=== PATIENT | male | born 1950 | race Caucasian/White ===

== ENCOUNTER 2024-06-15 07:46 | Day surgery (SDC) | payer MEDICARE, OTHER, SELFPAY ==
[2024-05-29 09:41] VITALS: BMI 22.9
[2024-06-15] VITALS (21 sets, daily range): BP systolic 98–179; BP diastolic 55–86
[2024-06-15 11:38] LABS: ACT-LR - POC 313 Seconds (116-155)
[2024-06-15 11:59] LABS: ACT-LR - POC 350 Seconds (116-155)
--- NOTE | 2024-06-15 12:13 | ITS.CL.ABL ---
Manager Contact - Ablation
Ablation
Procedure Report:
ELECTROPHYSIOLOGY ABLATION STUDY
�
DATE:: June 15, 2024�����������������������������REFERRING: Dr. Eugene Adamson
�
INDICATION: Paroxysmal supraventricular tachycardia in the form of atrial fibrillation.��Drug refractory atrial fibrillation on metoprolol therapy
�
HISTORY: See H and P.��As above
�
ANTIARRHYTHMIC DRUG: Metoprolol
�
PRE-PROCEDURE SERGIO: No atrial thrombus
�
PRESENTING RHYTHM: Sinus rhythm
�
'TIME-OUT':��called and confirmed.
�
SEDATION/ANESTHESIA:��provided via the anesthesia department using general anesthesia (LMA).
�
INTRAVENOUS/ARTERIAL ACCESS:
Right femoral venous - 8Fr
Left femoral venous - 8 Fr, 6 Fr
[id number] suture to each of the groins
Ultrasound guidance for bilateral femoral vein access was utilized by me to obtain access with demonstration of normal anatomy
CHADS-VASC Score:
�
HAS-Bled Score
�
PROCEDURE:
1.��A decapolar CS catheter was placed within the CS for mapping and pacing.��This was also used as the reference catheter for the 3-D map.
�
2. The intracardiac ultrasound catheter was positioned in the RA to identify the FO for targeting of transseptal puncture, assist��in identification of the pulmonary vein ostia, monitoring pre and post ablation pulmonary vein flow velocities,
monitoring for 'bubble' formation during RF application as a sign of thermal injury,��and to monitor for pericardial effusion during mapping and ablation procedure.���Left atrial size, LV ejection fraction, and pulmonary vein flows were monitored
pre and post ablation procedure. The other valves were inspected and found to be free of significant regurgitation or stenosis.
�
3.��Half of the calculated heparin bolus was administered prior to the first transeptal puncture.��Transseptal puncture was performed to diagnose RA and LA pressure so that safety of LA mapping and ablation could be further assessed, and to access
the left atrium and pulmonary veins for mapping and ablation.��This entailed advancing an 16 Wolof outer sheath with dilator and RF wire apparatus into the superior vena cava and withdrawing both (monitoring intracardiac ultrasound, fluoroscopy and
tip pressure) with the tip oriented toward the atrial septum.��The fossa ovalis was engaged (indicated by sudden displacement of the sheath tip as well as tenting of the fossa seen on intracardiac ultrasound).��Left atrial access required a pass
with the Brockenbrough needle extended.��Left atrial catheter position was confirmed by pressure monitoring (RA mean pressure 8 mm Hg and LA mean pressure 14 mm Hg), LA saturation ( 99 %),��as well as fluoroscopy.��The sheath was advanced over the
dilator and positioned in the left atrium.���The remainder of the calculated heparin bolus was administered and heparin was
infused to maintain ACT at 300 -350 seconds throughout the case.
�
4.��RA pacing was performed via the proximal decapolar poles and LA pacing was performed via the distal decapolar poles.
�
5. A quadrapolar catheter was first positioned at the His position for His Bundle recording which was tagged via the 3-D Navex sytem, and then passed to the RVA for RV pacing and recording.
�
6. The multipolar catheter and the PFA catheter were placed in each of the LIPV, LSPV, RSPV and the RIPV.��
�
7.��Next, a 3-D map was created using Navex.���A 3-D reconstructed CT image was compared to the 3-D Navex map to assist in anatomic interpretation, mapping and ablation.��The CT image and the NavX image were fused.
�
8. Total of 52 lesions were given with the femoral pulse catheter. Each vein was addressed with olive and basket pose in 2 separate confirmations with flower pose to the antrum and posterior wall of the left atrium and left atrial roof. Entrance
and exit block was confirmed in each of the 4 pulmonary veins and electrical silence and left atrial posterior wall. EP study post ablation demonstrated no other inducible nonpulmonary triggers for atrial fibrillation nor extrapulmonary vein
substrate for atrial fibrillation.
�
9. Normal sinus node and AV bennett function noted. Improvement in basic cycle length of the sinus node post ablation of the right pulmonary veins.
TOTAL FLOURO TIME: 15.7 minutes 123 mGy
�
TOTAL RF DURATION: 0 minutes
�
REVERSAL OF HEPARIN: [ ] mg of protamine, slow IV administration
�
COMPLICATIONS:
None
Intracardiac US shows no pericardial effusion post ablation.
�
SUMMARY:��
Complex left atrial mapping and ablation.
Isolation of all 4 pulmonary veins plus left atrial posterior wall as above with the Farapulse PFA catheter
�
RECOMMENDATIONS:
1. Out of bed 4 hours
2. Resume anticoagulation
3.��Consider same-day discharge
4.��3 months of oral anticoagulation before discontinuation if clinically silent from atrial fibrillation perspective
�
Copy to: Dr. Eugene Adamson
�
--- NOTE | 2024-06-15 16:12 | W.PN.UPDATE ---
Update Note
Progress Note Update
Pt seen post PFA. Bilat groin sites without ht/bleeding. OOB ambulating, urinating without difficulty. Post EKG NSR w/RBBB, PACs as before- no acute changes. Resume eliquis tonight at usual time, continue other meds as before. Followup at [facility] as
scheduled. Home today if groin sites/tele remain stable.
== END 2024-06-15 17:00 | disposition home or self-care (01) ==
LOC: CATH 07:46
PROVIDERS: ATTENDING PHYSICIAN Internal Medicine Cardiovascular Disease; FAMILY PHYSICIAN Family Medicine
DX: I48.0 Paroxysmal atrial fibrillation (principal); I47.19 Other supraventricular tachycardia; I45.10 Unspecified right bundle-branch block; I10 Essential (primary) hypertension; N40.0 Benign prostatic hyperplasia without lower urinary tract symptoms; Z79.01 Long term (current) use of anticoagulants
CPT/HCPCS: C1732; C1894; C1730; C1769; C1892; C1759; 85347; 93005; 93656; C1733; C1766

== ENCOUNTER 2025-02-08 07:34 | Emergency (ER) | payer MEDICARE, OTHER, SELFPAY ==
[2025-02-08 07:52] VITALS: BP 174/85
--- NOTE | 2025-02-08 08:34 | ED.GENMED ---
History of Present Illness
General
Chief Complaint: Skin Surface Trauma
Source: patient
Exam Limitations: none
Time Seen by Provider: 02/08/25 08:12
Nursing documentation reviewed up to this point in time: agreed with
History of Present Illness
History of Present Illness:
74 y/o M R hand dominant here with R thumb laceration through his R thumb nail plate and knicked the fat pad as well; he doesn't think this went through and through
on eliquis but held it last night and this morning
had ablation 4 mo ago and as far as he knows he is not in afib any longer and will likely d/c the eliquis soon anyway
tetanus around 5 years ago
this happened last night
still having some oozing
Past History
Past History
ED Past Medical History: Arrthythmia and HTN
ED Past Surgical History: Cardiac
Social History
Tobacco: Non-smoker
Alcohol: None
Review of Systems
Review of Systems
Allergies reviewed?: Yes
All Other Systems: Not applicable
Phy Exam
Physical Exam
Physical Exam:
GENERAL: Alert , in no apparent distress, comfortable at rest
HEAD: NCAT
CV: cap refill intact
NEUROLOGICAL: Alert and oriented, no focal neuro deficits, , 5/5 strength, sensation intact, ambulation slight limp right leg
SKIN: Warm and dry, pt has a puncture through the mid nail plate of the R thumb with some mild oozing
the distal fingertip on the palmar aspect has a few superficial lacerations 2 -3 mm
MUSCULOSKELETAL: full ROM of the thumb
tender fingertip
normal vascular exam
strength normal
PSYCH: Normal and appropriate interaction.
Course
Orders/Labs/Results
Orders:
Orders
02/08/25 08:30
Finger(s)/Thumb 2 View Rt [CR Finger(s)/thumb Min 2 Vw Rt] Urgent
Comment:
Reason For Exam: injury, laceration
Indicate Which Finger:: Thumb
02/08/25 08:33
Tetanus/Diphth/Acelpertussis [Adacel] 0.5 ml IM .ONCE ONE
Vital Signs
Initial and Last Documented VS:
Initial Vital Signs
Temp Pulse Resp BP Pulse Ox
36.4 C 56 16 174/85 99
02/08/25 07:52 02/08/25 07:52 02/08/25 07:52 02/08/25 07:52 02/08/25 07:52
Last Documented Vital Signs
Temp Pulse Resp BP Pulse Ox
36.4 C 56 16 174/85 99
02/08/25 07:52 02/08/25 07:52 02/08/25 07:52 02/08/25 07:52 02/08/25 07:52
MDM/Problems Addressed
Differential Diagnosis Includes:
laceration, puncture
MDM/Problems Addressed:
74 y/o M
thumb laceration by a table saw last night
on eliquis since his ablation but not known to be in afib, uses his watch
oozing slightly
tetanus 5+ years
punctured through the nail plate
a few superficial lacerations on the other surface
xray indep reviewed, no bony trauma
teatnus updated
irrigated
will not close the nail plate due to risk of infection and subungal hematoma
aware of nail bed possibly being injured
bacitracin dressing
wound care
*Critical Care Note
Total Time (30-74mins, 75-104mins- exclusive of procedures): Not Applicable
ED Attending Note
-
Portions of this chart may have been created with voice recognition software.� Occasional wrong word or��sound alike� substitutions may have occurred due to the inherent limitations of voice recognition software.
Discharge Plan
Departure
Patient Disposition: Home (Routine Discharge)
Date of Disposition: 02/08/25
Time of Disposition: 08:50
Patient with high blood pressure during this ER visit?: Yes
Condition: Fair
Discharge Problem:
Laceration of thumb
Instructions: Wound Care (DC), BLOOD PRESSURE
Prescriptions:
No Action
sildenafil 100 mg Tablet
100 mg PO DAILY PRN (Reason: as directed)
vitamin B complex Tablet
1 tab PO DAILY
metoprolol succinate 25 mg Tablet Extended Release 24 Hr
12.5 mg PO QPM
mometasone 0.1 % Cream
1 applic TOPICAL DAILY PRN (Reason: skin condition)
finasteride 1 mg Tablet
1 mg PO DAILY
Eliquis 5 mg Tablet
5 mg PO BID
Referrals:
Uday Crooks MD [Family Provider, Family Practice]
Activity Restrictions/Additional Instructions:
KEEP THE DRESSING ON FOR 1-2 DAYS TO ALLOW FOR THE WOUND TO STOP BLEEDING
AFTER 1-2 DAYS, THEN REMOVE THE DRESSING, MAKE SURE YOU WASH YOUR FINGER NORMALLY AND COVER WITH BANDAID TO PROTECT IT FOR A FEW DAYS.
THE BONE IS INTACT
YOU WERE GIVEN A TETANUS SHOT
YOU CAN HOLD YOUR ELIQUIS TONIGHT IF YOU'D LIKE OR YOOU CAN RESTART IT
HOLD PRESSURE IF THE WOUND IS PERSISTENTLY BLEEDING, RETURN FOR UNCONTROLLED BLEEDING NEEDED
TYLENOL EVERY 6 HOURS FOR PAIN
Interventions
Interventions:
*Risk Screen - Suicide Last Done: 02/08/25 07:52
*Neglect/Abuse Screening Last Done: 02/08/25 07:56
*ED COVID-19 Vaccine History Last Done: 02/08/25 07:56
Discharge Date and Time
Print Language: BAHAMIAN
[2025-02-08] MEDS: ADACEL 0.5 ML IM (08:55)
== END 2025-02-08 08:50 | disposition home or self-care (01) ==
LOC: EMR 07:34
PROVIDERS: EMERGENCY PHYSICIAN Student in an Organized Health Care Education/Training Program; FAMILY PHYSICIAN Family Medicine
DX: S61.111A Laceration without foreign body of right thumb with damage to nail, initial encounter (principal); W31.2XXA Contact with powered woodworking and forming machines, initial encounter; I10 Essential (primary) hypertension; Z79.01 Long term (current) use of anticoagulants; Z23 Encounter for immunization
CPT/HCPCS: 99283; 90471; 73140; 90715

== ENCOUNTER 2025-07-16 00:22 | Emergency (ER) | payer MEDICARE, OTHER, SELFPAY ==
[2025-07-16 00:32] VITALS: BP 150/66
--- NOTE | 2025-07-16 01:08 | ED.GENMED ---
History of Present Illness
<Farzana Campos PA-C - Last Filed: 07/16/25 05:43>
General
Chief Complaint: Rectal Bleeding
Source: patient
Exam Limitations: none
Time Seen by Provider: 07/16/25 00:49
Nursing documentation reviewed up to this point in time: agreed with
History of Present Illness
History of Present Illness:
74-year-old male with a past medical history of diverticulosis, A-fib on Eliquis, presents to ER today with concerns of bright red rectal bleeding. Patient reports that it occurs all the time and does not necessarily feel the toilet bowl. The
patient has a history of this occurrence twice before, 1 beginning at the start of the year and 1 occurring 6 years ago. There is no associated pain at those times and he had a colonoscopy and the bleeding was attributed to diverticular bleeding.
No associated abdominal pain or rectal pain was reported. The patient is currently on Eliquis since 1 year ago after he had ablation for A-fib. Rectal bleeding has not been painful he denies any associated diarrhea, fever, constipation, recent
illness. Bleeding is described as persistent for the past 12 hours or so. Patient is concerned by the extent of blood loss. He notes some mild dizziness but denies any lightheadedness, denies a syncopal episodes. Denies any headache.
Past History
<ALLY Rock Last Filed: 07/16/25 05:43>
Past History
ED Past Medical History: Arrthythmia and HTN
ED Past Surgical History: Cardiac
Social History
Tobacco: Non-smoker
Alcohol: None
Review of Systems
<Farzana Campos PA-C - Last Filed: 07/16/25 05:43>
Review of Systems
All Other Systems: ROS reviewed and negative except as documented in HPI and ROS
Phy Exam
<Farzana Campos PA-C - Last Filed: 07/16/25 05:43>
Physical Exam
Physical Exam:
General: Patient is well appearing and in no acute distress; non-toxic
Skin: Warm and dry, no rashes or lesions
Head: Normocephalic, atraumatic
Eyes: Sclera non-icteric. EOMs intact.
Cardiac: Regular rate and rhythm, no murmurs
Peripheral Vascular: No lower extremity swelling or edema
Pulm: Normal respiratory effort, no wheezes, rales, or rhonchi
Abdomen: No abdominal tenderness to palpation
Genitourinary: Non-bleeding external hemorrhoids noted, bright red bleeding noted on digital examination no evidence of anal tear or internal hemorrhoids
Neuro: CN II-XII intact, no focal neurologic deficits.
Psychiatric: Appropriate mood and affect.
Course
<Farzana Campos PA-C - Last Filed: 07/16/25 05:43>
Orders/Labs/Results
Orders:
Orders
07/16/25 01:52
Type+Screen Urgent
Complete Blood Count/With Diff Urgent
Comprehensive Metabolic Panel Urgent
Abnormal Lab Results
07/16/25
01:52
RBC 4.24 L 10^6/uL
(4.70-6.10)
MCV 97.9 H fL
(80.0-94.0)
MCHC 31.3 L g/dL
(33.0-37.0)
RDW 15.2 H %
(11.5-14.5)
Abs Immat Gran (auto) 0.1 H 10^3/uL
(0-0.05)
Absolute Neuts (auto) 7.5 H 10^3/uL
(1.4-6.5)
Immature Gran % 1.0 H %
(0-0.5)
Lymphocytes % 16.0 L %
(20.5-51.1)
BUN 24 H mg/dl
(9-20)
Glucose 110 H mg/dl
(70-99)
07/16/25 01:52
07/16/25 01:52
Vital Signs
Initial and Last Documented VS:
Initial Vital Signs
Temp Pulse Resp BP Pulse Ox
98 F 52 20 150/66 98
07/16/25 00:32 07/16/25 00:32 07/16/25 00:32 07/16/25 00:32 07/16/25 00:32
Last Documented Vital Signs
Temp Pulse Resp BP Pulse Ox
98 F 58 16 165/77 98
07/16/25 00:32 07/16/25 03:40 07/16/25 03:40 07/16/25 03:40 07/16/25 03:40
<Alexandre H. DO Lindsey - Last Filed: 07/16/25 02:55>
Orders/Labs/Results
Orders:
Orders
07/16/25 01:52
Type+Screen Urgent
Complete Blood Count/With Diff Urgent
Comprehensive Metabolic Panel Urgent
Abnormal Lab Results
07/16/25
01:52
RBC 4.24 L 10^6/uL
(4.70-6.10)
MCV 97.9 H fL
(80.0-94.0)
MCHC 31.3 L g/dL
(33.0-37.0)
RDW 15.2 H %
(11.5-14.5)
Abs Immat Gran (auto) 0.1 H 10^3/uL
(0-0.05)
Absolute Neuts (auto) 7.5 H 10^3/uL
(1.4-6.5)
Immature Gran % 1.0 H %
(0-0.5)
Lymphocytes % 16.0 L %
(20.5-51.1)
BUN 24 H mg/dl
(9-20)
Glucose 110 H mg/dl
(70-99)
07/16/25 01:52
07/16/25 01:52
Vital Signs
Initial and Last Documented VS:
Initial Vital Signs
Temp Pulse Resp BP Pulse Ox
98 F 52 20 150/66 98
07/16/25 00:32 07/16/25 00:32 07/16/25 00:32 07/16/25 00:32 07/16/25 00:32
Last Documented Vital Signs
Temp Pulse Resp BP Pulse Ox
98 F 58 16 165/77 98
07/16/25 00:32 07/16/25 03:40 07/16/25 03:40 07/16/25 03:40 07/16/25 03:40
<Farzana Campos PA-C - Last Filed: 07/16/25 05:43>
MDM/Problems Addressed
Differential Diagnosis Includes:
Differentials include internal hemorrhoidal bleed, diverticular bleed,, colon polyp, ischemic colitis, spontaneous bleeding secondary to Eliquis
MDM/Problems Addressed:
74-year-old male with a past medical history of diverticulosis, A-fib on Eliquis, presents to ER today with concerns of bright red rectal bleeding. It has been constant and persistent for the past 12 hours or so. He has no associated Nick pain
or rectal pain. Physical exam he does have bright red blood noted within the rectal vault, no evidence of anal tear or bleeding hemorrhoid. Patient was consented for blood. His blood work reveals normal hemoglobin. He did have a transient
episode of lightheadedness at home but this has since subsided. Currently denies any dizziness or lightheadedness. He denies any syncopal episodes. We did discuss recommendation for admission for observation continuing trending of hemoglobins.
His last colonoscopy revealed diverticula but was otherwise unremarkable. Patient reports that he would rather monitor his symptoms from home as prior episodes symptoms has resolved. Patient reports that he will monitor for worsening symptoms and
will return immediately should the bleeding persist.
Cardiac monitoring does reveal the patient is in sinus rhythm. Okay to hold Eliquis for 48 hours.
Chronic conditions affecting care:
A-fib on Eliquis status post ablation
<Farzana Campos PA-C - Last Filed: 07/16/25 05:43>
*Pulse Oximetry
SaO2: 98
Oxygen Mode of Delivery: Room air
Patient hypoxic: no
*Critical Care Note
Total Time (30-74mins, 75-104mins- exclusive of procedures): Not Applicable
Data Reviewed
Review of Other/Old Records Reveals: Records (Reviewed history and physical from 05/29/2024 patient seen for paroxysmal A-fib) and Discharge Summary (No discharge summaries in [facility] for review)
Source: patient and records
ED Attending Note
<ALLY Rock Last Filed: 07/16/25 05:43>
-
Portions of this chart may have been created with voice recognition software.� Occasional wrong word or��sound alike� substitutions may have occurred due to the inherent limitations of voice recognition software.
<Alexandre Portillo DO - Last Filed: 07/16/25 02:55>
ED Attending Note
Patient seen and examined by attending physician: Yes
I performed the substantive portion of visit, reviewed & personally made and approve the management plan that is documented in note by myself or MYLA.: Yes
ED Attending Note:
I agree with Farzana's note
Patient presents complaint of rectal bleeding. He has had 3 episodes of bright red blood since 1 PM. No dizziness or lightheadedness. Patient does take Eliquis. He did not take his dose tonight so his last dose was yesterday morning. Patient
has had GI bleeding in the past which resolved on its own. He takes the Eliquis because of A-fib.
General: Awake, Alert, Oriented X3. No acute distress.
Vitals: Normal heart rate, normal blood pressure
Head: Atraumatic
Eyes: Pupils equal, EOMI
Abd: Soft, Nontender, No pulsatile mass
Neuro: Nonfocal
Skin: Warm, dry, no rash
Extremities: pulses equal b/l, no edema
Patient is hemodynamically stable. His hemoglobin is unchanged from previous measurement. Suggested the patient be hospitalized for trending of hemoglobin and monitoring of vital signs etc. Patient would prefer to go home and return if the
bleeding continues. Strongly recommended hospitalization but ultimately the patient has decided to go home. He agrees to return if he starts to feel lightheaded dizzy short of breath or if the bleeding persists for more than 12 hours. He will
hold his Eliquis for the next 48 hours but agree given that he is in sinus rhythm
Discharge Plan
Departure
Patient Disposition: Home (Routine Discharge)
Date of Disposition: 07/16/25
Time of Disposition: 03:11
Patient with high blood pressure during this ER visit?: Yes
Condition: Good
Discharge Problem:
Bright red rectal bleeding
Instructions: Bloody stools in adults, BLOOD PRESSURE
Prescriptions:
No Action
sildenafil 100 mg Tablet
100 mg PO DAILY PRN (Reason: as directed)
vitamin B complex Tablet
1 tab PO DAILY
metoprolol succinate 25 mg Tablet Extended Release 24 Hr
12.5 mg PO QPM
mometasone 0.1 % Cream
1 applic TOPICAL DAILY PRN (Reason: skin condition)
finasteride 1 mg Tablet
1 mg PO DAILY
Eliquis 5 mg Tablet
5 mg PO BID
Referrals:
Marcy Farr MD [Active, Gastroenterology] - Call in 1-3 days for appt
Uday Crooks MD [Family Provider, Family Practice]
Activity Restrictions/Additional Instructions:
As discussed, we do recommend admission.
Please continue to monitor your symptoms.
PLEASE RETURN TO THE ER SHOULD YOU DEVELOP ANY ACUTE WORSENING OF YOUR SYMPTOMS, FAINTING SPELLS, DIZZINESS, CHEST PAIN, SHORTNESS OF BREATH, LIGHTHEADEDNESS, OR ANY OTHER SIGNS OR SYMPTOMS CONCERNING TO YOU, OR IF BLEEDING PERSISTS.
Please hold Eliquis for 48 hours.
Please call the attached number to establish care with GI doctor.
Please follow up with primary care provider this week.
Interventions
Interventions:
*Risk Screen - Suicide Last Done: 07/16/25 00:32
*General Assessment Last Done: 07/16/25 01:59
*Neglect/Abuse Screening Last Done: 07/16/25 00:32
*ED- Fall Risk Assessment Last Done: 07/16/25 01:59
*ED COVID-19 Vaccine History Last Done: 07/16/25 01:59
*ED Influenza Vaccine History Last Done: 07/16/25 01:59
*Nursing Disposition Last Done: 07/16/25 03:42
QX-Yefdty-Trnjrngwjm Assessment Last Done: 07/16/25 02:02
ED- Cardiac Assessment Last Done: 07/16/25 02:02
ED- Pulmonary Assessment Last Done: 07/16/25 02:02
Discharge Date and Time
Discharge Date/Time: 07/16/25 03:46
Print Language: EQUATORIAL GUINEAN
[2025-07-16 01:59] VITALS: BMI 20.9
[2025-07-16 02:00] VITALS: BP 183/81
[2025-07-16 02:04] LABS: Hematocrit 41.5 % (39.0-52.0); Hemoglobin 13.0 g/dL (13.0-18.0); Mean Corp Hgb Conc. 31.3 g/dL (33.0-37.0); Mean Corpuscular Volume 97.9 fL (80.0-94.0); Nucleated Red Blood Cells % 0 % (-); Platelet Count 261 10^3/uL (130-400); Red Cell Dist. Width 15.2 % (11.5-14.5)
[2025-07-16 02:41] LABS: ALT (SGPT) 25 U/L (0-50); AST (SGOT) 21 U/L (17-59); Albumin 4.0 g/dl (3.5-5.0); Alkaline Phosphatase 59 U/L (38-126); Blood Urea Nitrogen 24 mg/dl (9-20); Calcium 8.9 mg/dl (8.4-10.2); Carbon Dioxide 28 mmol/L (22-30); Chloride 105 mmol/L (98-107); Estimated Creatinine Clearance 68 ml/min; Glucose 110 mg/dl (70-99); Potassium 4.4 mmol/L (3.5-5.1); Sodium 138 mmol/L (135-145); Total Protein 7.2 g/dl (6.3-8.2); eGFR > 60.00
[2025-07-16 02:58] VITALS: BP 175/90
[2025-07-16 03:40] VITALS: BP 165/77
== END 2025-07-16 03:46 | disposition home or self-care (01) ==
LOC: EMR 00:22
PROVIDERS: Physician Assistant; EMERGENCY PHYSICIAN Emergency Medicine; FAMILY PHYSICIAN Family Medicine
DX: K62.5 Hemorrhage of anus and rectum (principal); I10 Essential (primary) hypertension; I48.91 Unspecified atrial fibrillation; Z79.01 Long term (current) use of anticoagulants; Z87.19 Personal history of other diseases of the digestive system
CPT/HCPCS: 99283; 80053; 85025; 86850; 86900; 86901